=== PATIENT | female | born 1950 | race Caucasian/White ===

== ENCOUNTER 2018-02-02 14:01 | Emergency (ER) | payer MEDICARE, OTHER ==
[~2018-02-02] VITALS: Ht 152.4 cm; Wt 89.8 kg
[2018-02-02] MEDS ORDERED: IV NORMAL SALINE 1,000ML 1,000 ML IV SCH (14:48)
--- NOTE | 2018-02-02 15:03 | PHYS DOC ---
Adult General Chief Complaint Chief Complaint: RECTAL BLEED [facility] 67-year-old female patient who visiting this area from [facility] complaining of 2 episodes of bright red blood since 1:30 today with large amount of blood and bowel incontinence with the second episode of bowel movement. Patient complaining of generalized weakness and dizziness without chest pain, shortness of breath, abdominal pain, nausea and vomiting, constipation, ecchymosis and easy bruising. Patient states she had the same problem previously and had colonoscopy about 2 weeks after starting the symptom with few precancerous polyps that was removed without problem. Patient also states she had since her fall from a standing position about 10 days ago and injured left side of her chest and complaining of painful cough and bleeding without shortness of breath, fever and chills, palpitation. Review of Systems Review of Systems Constitutional: Denies fever or chills [] Eyes: Denies change in visual acuity, redness, or eye pain [] HENT: Denies nasal congestion or sore throat [] Respiratory: Denies cough or shortness of breath [] Cardiovascular: No additional information not addressed in HPI [] GI: Denies abdominal pain, nausea, vomiting, reports bloody stools and diarrhea [] : Denies dysuria or hematuria [] Musculoskeletal: Denies back pain or joint pain [] Integument: Denies rash or skin lesions [] Neurologic: Denies headache, focal weakness or sensory changes [] Endocrine: Denies polyuria or polydipsia [] All other systems were reviewed and found to be within normal limits, except as documented in this note. Current Medications Current Medications Current Medications Medications (Trade) Dose Ordered Sig/[facility] Start Time Stop Time Status Last Admin Dose Admin Pantoprazole Sodium (Protonix Vial) 40 mg 1X ONCE 02/02/18 15:00 02/02/18 15:01 UNV Sodium Chloride 1,000 ml @ 1,000 mls/hr Q1H 02/02/18 14:48 02/02/18 15:47 UNV Physical Exam Physical Exam Constitutional: Well developed, well nourished, mild distress, non-toxic appearance, no pallor. [] HENT: Normocephalic, atraumatic, oropharynx moist, no oral exudates, nose normal. [] Eyes: PERRLA, EOMI, conjunctiva normal, no discharge. [] Neck: Normal range of motion, no tenderness, supple, no stridor. [] Cardiovascular:Heart rate regular rhythm, no murmur [] Lungs & Thorax: Bilateral breath sounds clear to auscultation , left lower anterior chest wall tenderness without subcutaneous emphysema or crepitation[] Abdomen: Bowel sounds normal, soft, no tenderness, no masses, no pulsatile masses. Rectal exam with present of cloth classer showed maroon color stool inside of the rectum Skin:warm, dry, no erythema, no rash. [] Back: No tenderness, no CVA tenderness. [] Extremities: No tenderness, no cyanosis, no clubbing, ROM intact, no edema. [] Neurologic: Alert and oriented X 3, normal motor function, normal sensory function, no focal deficits noted. [] Psychologic: Affect normal, judgement normal, mood normal. [] EKG EKG [] Radiology/Procedures Radiology/Procedures [][place] [address] IMAGING REPORT Signed PATIENT: CJ GASCA ACCOUNT: [id number] : 1950 LOCATION: ER AGE: 67 SEX: F EXAM STATUS: REG ER ORD. PHYSICIAN: NAHUN HUYNH MD REASON: GI bleeding PROCEDURE: CT ABDOMEN PELVIS WO CONTRAST Examination: CT of the abdomen pelvis without contrast HISTORY: History of fall, rectal bleeding COMPARISON: None available TECHNIQUE: Axial CT images of the abdomen pelvis were performed without contrast. Coronal and sagittal reformats are performed Exposure: One or more of the following individualized dose reduction techniques were utilized for this examination: 1. Automated exposure control 2. Adjustment of the mA and/or kV according to patient size 3. Use of iterative reconstruction technique FINDINGS: Faint airspace opacities identified in the left lung base, left lingula likely atelectasis. No evidence of free air identified in the abdomen. Subtle cortical step-off identified in the anterior aspect of the left sixth and seventh ribs just proximal to the costochondral junction likely subtle fractures. Evaluation of the solid organs is limited lack of IV contrast. The visualized noncontrasted liver, spleen, adrenals grossly appears unremarkable. The stomach is mildly distended. The visualized pancreas grossly appears unremarkable. Cholecystectomy clips identified. The small bowel is nondilated. Feces and gas noted in the colon. Multiple sigmoid colon diverticulosis. The appendix is normal. Questionable mild thickened appearance of the rectal wall. Urinary bladder is mildly distended Bilateral iliac vein stent identified. There is a small herniation of fat and possibly omentum in the left anterior abdominal wall, best visualized on series 2 image #60. No evidence of intrarenal collecting system calculi or hydronephrosis The caliber of the aorta grossly appears unremarkable. Mild aortic atherosclerosis. Minimal thickened appearance of the anterior wall of the urinary bladder. Moderate degenerative changes lumbar spine. IMPRESSION: 1. Subtle cortical step-off identified in the anterior aspect of the left sixth and seventh ribs just proximal to the costochondral junction likely subtle fractures. 2. Questionable minimal thickened appearance of the wall of the rectum could be due to nondistention or proctitis. 3. Minimal thickened appearance of the anterior wall of the urinary bladder, nonspecific. Cystitis or underlying mucosal pathology is not completely excluded. 4. Small herniation of fat and possibly omentum in the left anterior abdominal wall, best visualized on series 2 image #60. Electronically signed by: Nirmal Cody MD (02/02/2018 3:32 PM) [id number] DICTATED AND SIGNED BY: NIRMAL CODY MD DATE: 02/02/18 1523 CC: NAHUN HUYNH MD; NON,STAFF ~ [place] [address] IMAGING REPORT Signed PATIENT: CJ GASCA ACCOUNT: [id number] : 1950 LOCATION: ER AGE: 67 SEX: F EXAM STATUS: REG ER ORD. PHYSICIAN: NAHUN HUYNH MD REASON: fall and chest wall injury PROCEDURE: RIBS LEFT AND PA CHEST Rib series including frontal chest radiograph and 2 views left RIBS INDICATION: Fall last night, rib pain COMPARISON STUDY: None FINDINGS: No pneumothorax is identified. No pleural effusion or focal infiltrate is seen. Heart size is normal. There is irregularity and mild hypertrophic change involving the left fourth fifth and sixth ribs. More laterally on the left fifth rib there is an area which appears to be a mildly displaced acute fracture. Correlate with area of focal tenderness. These other rib fractures are age indeterminate. Correlate with history of prior injury or fall. IMPRESSION: 1. Probable acute mildly displaced fracture of the lateral left fifth rib. 2. Age-indeterminate fractures of the fourth through sixth ribs as described Electronically signed by: Casey Lim MD (02/02/2018 3:26 PM) [facility] DICTATED AND SIGNED BY: CASEY LIM MD DATE: 02/02/18 1523 CC: NAHUN HUYNH MD; NON,STAFF ~ Course & Med Decision Making Course & Med Decision Making Pertinent Labs and Imaging studies reviewed. (See chart for details) Evolution of patient in ER showed 67-year-old female patient with history of GI bleeding presented with 2 episodes of rectal bleeding. Patient had hemoglobin of 12.6 without previous for computer. Patient also had injury to left side of her chest tenderness ago and had left rib #5 fracture. Because of lack of GI specialist in this hospital planned to transfer patient to [facility]. Dr. Rios accepted transfer to [facility] at 1550. Patient treated in ER with IV fluid and Protonix and did not have episodes of rectal bleeding and didn't want to have pain medication. Dragon Disclaimer Dragon Disclaimer This electronic medical record was generated, in whole or in part, using a voice recognition dictation system. Departure Departure: Impression: Primary Impression: Rectal bleeding Additional Impressions: Uncontrolled diabetes mellitus Left rib fracture Disposition: XFER SHT-TRM HOSP ([facility] at 1551) Condition: IMPROVED Referrals: NON,STAFF (PCP) Problem Qualifiers NAHUN HUYNH MD Feb 02, 2018 15:03
[2018-02-02 15:25] LABS: BASO % 0 % (0-3); EOS % 0 % (0-3); HEMATOCRIT 38.5 % (36.0-47.0); HEMOGLOBIN 12.7 g/dL (12.0-15.5); LYMPH # 1.6 x10^3/uL (1.0-4.8); LYMPH % 18 % (24-48); MEAN CORPUSCULAR HEMOGLOBIN 29 pg (25-35); MEAN CORPUSCULAR HGB CONC 33 g/dL (31-37); MEAN CORPUSCULAR VOLUME 87 fL (79-100); MONO # 0.5 x10^3/uL (0.0-1.1); MONO % 6 % (0-9); NEUT # 6.7 x10^3uL (1.8-7.7); NEUT % 76 % (31-73); PLATELET COUNT 412 x10^3/uL (140-400); RED BLOOD COUNT 4.42 x10^6/uL (3.50-5.40); RED CELL DISTRIBUTION WIDTH 14.6 % (11.5-14.5); WHITE BLOOD COUNT 8.9 x10^3/uL (4.0-11.0)
--- NOTE | 2018-02-02 15:29 | RAD ---
Rib series including frontal chest radiograph and 2 views left RIBS INDICATION: Fall last night, rib pain COMPARISON STUDY: None FINDINGS: No pneumothorax is identified. No pleural effusion or focal infiltrate is seen. Heart size is normal. There is irregularity and mild hypertrophic change involving the left fourth fifth and sixth ribs. More laterally on the left fifth rib there is an area which appears to be a mildly displaced acute fracture. Correlate with area of focal tenderness. These other rib fractures are age indeterminate. Correlate with history of prior injury or fall. IMPRESSION: 1. Probable acute mildly displaced fracture of the lateral left fifth rib. 2. Age-indeterminate fractures of the fourth through sixth ribs as described Electronically signed by: Casey Alatorre MD (02/02/2018 3:26 PM) [facility]
[2018-02-02] MEDS ORDERED: PANTOPRAZOLE IV 40 MG VIAL. IVP ONE (15:30)
--- NOTE | 2018-02-02 15:35 | RAD ---
Examination: CT of the abdomen pelvis without contrast HISTORY: History of fall, rectal bleeding COMPARISON: None available TECHNIQUE: Axial CT images of the abdomen pelvis were performed without contrast. Coronal and sagittal reformats are performed Exposure: One or more of the following individualized dose reduction techniques were utilized for this examination: 1. Automated exposure control 2. Adjustment of the mA and/or kV according to patient size 3. Use of iterative reconstruction technique FINDINGS: Faint airspace opacities identified in the left lung base, left lingula likely atelectasis. No evidence of free air identified in the abdomen. Subtle cortical step-off identified in the anterior aspect of the left sixth and seventh ribs just proximal to the costochondral junction likely subtle fractures. Evaluation of the solid organs is limited lack of IV contrast. The visualized noncontrasted liver, spleen, adrenals grossly appears unremarkable. The stomach is mildly distended. The visualized pancreas grossly appears unremarkable. Cholecystectomy clips identified. The small bowel is nondilated. Feces and gas noted in the colon. Multiple sigmoid colon diverticulosis. The appendix is normal. Questionable mild thickened appearance of the rectal wall. Urinary bladder is mildly distended Bilateral iliac vein stent identified. There is a small herniation of fat and possibly omentum in the left anterior abdominal wall, best visualized on series 2 image #60. No evidence of intrarenal collecting system calculi or hydronephrosis The caliber of the aorta grossly appears unremarkable. Mild aortic atherosclerosis. Minimal thickened appearance of the anterior wall of the urinary bladder. Moderate degenerative changes lumbar spine. IMPRESSION: 1. Subtle cortical step-off identified in the anterior aspect of the left sixth and seventh ribs just proximal to the costochondral junction likely subtle fractures. 2. Questionable minimal thickened appearance of the wall of the rectum could be due to nondistention or proctitis. 3. Minimal thickened appearance of the anterior wall of the urinary bladder, nonspecific. Cystitis or underlying mucosal pathology is not completely excluded. 4. Small herniation of fat and possibly omentum in the left anterior abdominal wall, best visualized on series 2 image #60. Electronically signed by: Nirmal Cody MD (02/02/2018 3:32 PM) [id number]
[2018-02-02 15:36] LABS: BILIRUBIN,URINE NEG (NEG); CLARITY,URINE CLEAR; COLOR,URINE YELLOW; GLUCOSE,URINE NEG (NEG)
[2018-02-02 15:37] LABS: BACTERIA,URINE 0 /HPF (0-FEW); NITRITE,URINE NEG (NEG); RBC,URINE 0 /HPF (0-2); UROBILINOGEN,URINE 0.2 mg/dL (0.2 mg/dL); WBC,URINE 0 /HPF (0-4)
[2018-02-02 15:42] LABS: ALBUMIN 3.7 g/dL (3.4-5.0); CALCIUM 9.4 mg/dL (8.5-10.1); CREATININE 0.8 mg/dL (0.6-1.0); GFR 71.1; POTASSIUM 4.1 mmol/L (3.5-5.1); TOTAL BILIRUBIN 0.2 mg/dL (0.2-1.0); TOTAL PROTEIN 7.4 g/dL (6.4-8.2)
[2018-02-02 15:49] LABS: FECAL OB PT POSITIVE (NEG)
[2018-02-02 20:03] VITALS: BP 141/63
== END 2018-02-02 20:03 | disposition short-term general hospital (02) ==
LOC: ER 14:01
DX: K62.5 Hemorrhage of anus and rectum (principal); E11.9 Type 2 diabetes mellitus without complications; S22.32XA Fracture of one rib, left side, initial encounter for closed fracture; W18.39XA Other fall on same level, initial encounter; Y93.89 Activity, other specified; Y99.8 Other external cause status; Y92.89 Other specified places as the place of occurrence of the external cause
CPT/HCPCS: 36415; 71101; 74176; 80053; 81001; 82274; 83690; 84484; 85025; 85610; 85730; 86850; 86900; 86901; 96361; 96374; 99285; C9113; J7030